=== PATIENT | female | born 1950 | race Caucasian/White ===

== ENCOUNTER 2025-04-27 01:12 | Emergency (ER) | payer BC, SELFPAY ==
[2025-04-27 01:14] VITALS: BP 174/78
--- NOTE | 2025-04-27 01:58 | ED.GENMED ---
History of Present Illness
General
Chief Complaint: DVT/Possible Blood Clot
Source: patient
Exam Limitations: none
Time Seen by Provider: 04/27/25 01:31
Nursing documentation reviewed up to this point in time: agreed with
History of Present Illness
History of Present Illness:
Note:
CHIEF COMPLAINT(S)
Left leg pain and swelling.
HISTORY OF PRESENT ILLNESS
The patient is a 74-year-old female with a known history of hypertrophic obstructive cardiomyopathy (HOCM), followed by Dr. Kole Barron at [place], [facility], COPD, diabetes, presenting with left leg pain and swelling since . The patient reports
the pain started spontaneously without a preceding injury, initially suspecting a muscle pull which has progressively worsened. The pain is localized to the calf and knee area, extending slightly upwards. It is exacerbated by walking. The patient
describes the leg as swollen and tender to touch. There have been no recent falls or injuries. She mentions experiencing lower back pain earlier in the week, which has since resolved. The patient was advised by urgent care to seek further evaluation
but could not undergo testing there due to equipment limitations, and urgent follow-up was recommended. She denies chest pain, fevers, shortness of breath, rash, redness, dizziness, lightheadedness, recent weight gain. No hx of osteoarthritis. No hx
of gout.
PAST MEDICAL AND SURGICAL HISTORY
The patient has a significant history of hypertrophic obstructive cardiomyopathy (HOCM) and a prior history of endometrial cancer, considered cured since surgery in 2008. She also has a history of diabetes managed with metformin.
CHRONIC MEDICAL CONDITIONS SIGNIFICANTLY AFFECTING CARE
Chronic conditions affecting care include hypertrophic obstructive cardiomyopathy (HOCM) and diabetes mellitus.
SOCIAL DETERMINANTS OF HEALTH
The patient expresses concerns about insurance coverage and medication costs, particularly worried about future coverage for upcoming therapies due to insurance changes. There are noted family stresses, including recent and ongoing health concerns
for family members.
PHYSICAL EXAM
Nursing notes reviewed and vital signs reviewed.
General: Patient is well appearing and in no acute distress; non-toxic
Skin: Warm and dry, no rashes or lesions
Head: Normocephalic, atraumatic
Eyes: Sclera non-icteric. EOMs intact.
Cardiac: Regular rate, systolic murmur noted
Peripheral Vascular: 2+ DP and PT pulses bilaterally, no pitting edema bilaterally
Pulm: Normal respiratory effort, no wheezes, rales, rhonchi
Abdomen: No abdominal tenderness to palpation
Musculoskeletal: Knee pain with passive flexion and extension, mild left calf tenderness to palpation. Normal gait.
Neuro: CN II-XII intact, no focal neurologic deficits.
Psychiatric: Appropriate mood and affect.
PLAN
An ultrasound of the left leg will be ordered to rule out deep vein thrombosis (DVT). Blood work will be done to assess kidney function in anticipation of possibly needing anticoagulation therapy.
DIFFERENTIAL DIAGNOSIS
The Differential Diagnosis includes, in no particular order and is not limited to:
- Deep vein thrombosis (DVT)
- Cellulitis
- Muscle strain or tear
- Osteoarthritis
- Dermatitis or connective tissue disorder
- Peripheral vascular disease
- Heart failure-related edema
- Ruptured Bakers cyst
- Neurological causes of leg pain
- Arthritis
- Infection or abscess
SUMMARY OF ENCOUNTER
The patient presented to the emergency department due to spontaneous onset of left leg pain and swelling, worsened by ambulation and occurring without a recent history of trauma. The clinical concern, given the presentation, points primarily towards
a possible DVT, warranting further investigation through Doppler ultrasound and blood tests to guide further management, including possible anticoagulation.
INDEPENDENT REVIEW OF LABS AND INTERPRETATION OF TESTS
Independent review of labs and tests planned includes kidney function tests to establish baseline and suitability for anticoagulation therapy. An ultrasound is planned to assess for DVT.
FOLLOW-UP INSTRUCTIONS
The patient will be followed up with results of the ultrasound and labs, and further appointments will be scheduled based on findings and treatment needs.
MEDICATION RECONCILIATION
Medications include carvedilol extended release 300 mg, atenolol 50 mg, metformin. The patient was previously on losartan but it was discontinued. Currently taking torsemide every other day. Baby aspirin is carried but not routinely taken unless
necessary.
CHART REVIEW
No prior ER physician documentation to review
No external medical summary to review
MEDICAL DECISION MAKING
-Complexity of Data Reviewed: Chronic conditions affecting care include hypertrophic obstructive cardiomyopathy (HOCM) and diabetes mellitus.
-Data:
Category 1:
Lab tests including kidney function tests to be ordered. Doppler ultrasound of the left leg ordered.
Category 2:
Clinical information obtained through independent review and assessment.
Category 3:
Discussion of management based on ultrasound findings expected.
-Risk:
Consideration of anticoagulation therapy depending on ultrasound and lab results.
Patient when for ultrasound study of the leg which was negative for DVT but does show cyst on the left thigh which patient states she has had for years. On exam, it does appear that the swelling is more concentrated in the knee but pain extends into
the calf. Full ROM bilaterally. She is neurovascularly intact. Suspect pain/swelling likely due to PVD vs osteoarthritis vs muscle sprain. Discussed compression, elevation, ice, Tylenol. Discussed strict return precautions. Discussed case with ED
attending who is in agreement with plan. Discussed calling PCP to schedule follow up. No concern for acute fluid overload as patient's lungs are clear, swelling is unilateral, no recent weight gain, vitals stable.
DIAGNOSIS
- Leg pain [M79.606].
- Edema [R60.0].
Review of Systems
Review of Systems
All Other Systems: ROS reviewed and negative except as documented in HPI and ROS
Phy Exam
Physical Exam
Physical Exam:
see hpi
Course
Orders/Labs/Results
Orders:
Orders
04/27/25 01:56
US Periph Venous LOWER Ext LT Urgent
Comment:
Reason For Exam: left lower ext swelling, pain
04/27/25 02:10
Complete Blood Count/With Diff Urgent
Comprehensive Metabolic Panel Urgent
04/27/25 04:01
Acetaminophen [Tylenol] 650 mg PO NOW STA
Abnormal Lab Results
04/27/25
02:10
Absolute Monos (auto) 0.7 H 10^3/uL
(0.1-0.6)
Monocytes % 11.1 H %
(1.7-9.3)
BUN 21 H mg/dl
(7-17)
04/27/25 02:10
04/27/25 02:10
Vital Signs
Initial and Last Documented VS:
Initial Vital Signs
Temp Pulse Resp BP Pulse Ox
97.5 F 60 22 174/78 96
04/27/25 01:14 04/27/25 01:14 04/27/25 01:14 04/27/25 01:14 04/27/25 01:14
Last Documented Vital Signs
Temp Pulse Resp BP Pulse Ox
97.5 F 60 22 174/78 96
04/27/25 01:14 04/27/25 01:14 04/27/25 01:14 04/27/25 01:14 04/27/25 01:59
*Pulse Oximetry
SaO2: 96
Oxygen Mode of Delivery: Room air
Patient hypoxic: no
*Critical Care Note
Total Time (30-74mins, 75-104mins- exclusive of procedures): Not Applicable
ED Attending Note
-
Portions of this chart may have been created with voice recognition software.� Occasional wrong word or��sound alike� substitutions may have occurred due to the inherent limitations of voice recognition software.
Discharge Plan
Departure
Patient Disposition: Home (Routine Discharge)
Date of Disposition: 04/27/25
Time of Disposition: 04:05
Patient with high blood pressure during this ER visit?: Yes
Condition: Good
Discharge Problem:
Left leg pain, Swelling of calf
Instructions: Muscle and Bone Pain (DC), BLOOD PRESSURE, Peripheral Vascular Disease
Referrals:
La Ogden, DO [Family Provider, Internal Medicine]
Activity Restrictions/Additional Instructions:
Please continue to monitor your symptoms. Please call your primary care provider to schedule follow-up appointment. I recommend taking extra strength Tylenol as needed for your symptoms and elevate your leg at home. You can use compressions
stockings as well to help with the swelling.
PLEASE RETURN TO ER SHOULD YOU DEVELOP SHORTNESS OF BREATH, CHEST PAIN, ACUTE WORSENING OF YOUR SWELLING OR PAIN, ABILITY AMBULATE, REDNESS OR RASH TO THE LEG, FEVERS OR CHILLS OR ANY OTHER SIGNS OR SYMPTOMS RECENTLY.
Interventions
Interventions:
*Risk Screen - Suicide Last Done: 04/27/25 01:14
*General Assessment Last Done: 04/27/25 03:00
*Neglect/Abuse Screening Last Done: 04/27/25 01:14
*ED COVID-19 Vaccine History Last Done: 04/27/25 03:00
*ED Influenza Vaccine History Last Done: 04/27/25 03:00
[facility] Fall Risk Assessment Tool Last Done: 04/27/25 04:29
*Nursing Disposition Last Done: 04/27/25 04:29
ED-Skin Assessment Last Done: 04/27/25 03:00
ED- Pulmonary Assessment Last Done: 04/27/25 03:00
ED-Musculoskeletal Assessment Last Done: 04/27/25 03:00
ED- Cardiac Assessment Last Done: 04/27/25 03:00
Discharge Date and Time
Discharge Date/Time: 04/27/25 04:30
Print Language: KHMER
[2025-04-27 02:33] LABS: Hematocrit 38.4 % (37.0-47.0); Hemoglobin 12.7 g/dL (12.0-16.0); Mean Corp Hgb Conc. 33.1 g/dL (33.0-37.0); Mean Corpuscular Volume 84.2 fL (81.0-99.0); Nucleated Red Blood Cells % 0 %; Platelet Count 247 10^3/uL (130-400); Red Cell Dist. Width 12.2 % (11.5-14.5)
[2025-04-27 02:50] LABS: ALT (SGPT) 16 U/L (0-35); AST (SGOT) 28 U/L (14-36); Albumin 4.2 g/dl (3.5-5.0); Alkaline Phosphatase 49 U/L (38-126); Blood Urea Nitrogen 21 mg/dl (7-17); Calcium 9.4 mg/dl (8.4-10.2); Carbon Dioxide 29 mmol/L (22-30); Chloride 102 mmol/L (98-107); Glucose 81 mg/dl (70-99); Potassium 4.4 mmol/L (3.5-5.1); Sodium 135 mmol/L (135-145); Total Protein 6.8 g/dl (6.3-8.2); eGFR > 60.00
[2025-04-27] MEDS: TYLENOL 650 MG PO (04:17)
== END 2025-04-27 04:30 | disposition home or self-care (01) ==
LOC: EMR 01:12
PROVIDERS: Physician Assistant; EMERGENCY PHYSICIAN Emergency Medicine; FAMILY PHYSICIAN Internal Medicine
DX: M79.662 Pain in left lower leg (principal); R22.42 Localized swelling, mass and lump, left lower limb; R03.0 Elevated blood-pressure reading, without diagnosis of hypertension; E11.9 Type 2 diabetes mellitus without complications; I42.1 Obstructive hypertrophic cardiomyopathy; E78.5 Hyperlipidemia, unspecified; J44.9 Chronic obstructive pulmonary disease, unspecified; Z79.84 Long term (current) use of oral hypoglycemic drugs; Z85.42 Personal history of malignant neoplasm of other parts of uterus; Z59.71 Insufficient health insurance coverage; Z63.79 Other stressful life events affecting family and household
CPT/HCPCS: 99284; 80053; 85025; 93971